=== PATIENT | female | born 1970 | race Caucasian/White ===

== ENCOUNTER → 2021-04-22 | Outpatient (CLI) | payer OTHER | END | disposition home or self-care (01) | LOC: CARD 09:03 | PROVIDERS: ATTEND Nurse Practitioner Primary Care | DX: I51.7 Cardiomegaly (principal); R07.89 Other chest pain; R00.1 Bradycardia, unspecified ==

== ENCOUNTER → 2021-09-26 | Outpatient (CLI) | payer OTHER | END | disposition home or self-care (01) | LOC: US 01:31 | PROVIDERS: ATTEND Physician Assistant | DX: K21.00 Gastro-esophageal reflux disease with esophagitis, without bleeding (principal); R10.84 Generalized abdominal pain ==

== ENCOUNTER → 2021-10-30 | Day surgery (SDC) | payer OTHER ==
[~2021-10-30] VITALS: Ht 165.1 cm; Wt 61.2 kg
[~2021-10-30] MED LIST: B12 ACTIVE1000 MCG PO; BIRTH CONTROL TAB PO; CARAFATE1 G1 PO; PROBIOTIC1 EAC4 PO; PROTONIX40 MG PO; WOMEN'S MULTI200 MCG PO
[2021-10-30 08:04] VITALS: BP 98/44
[2021-10-30 08:52] VITALS: BP 90/46
[2021-10-30 09:07] VITALS: BP 92/57
[2021-10-30 09:22] VITALS: BP 105/54
== END | disposition home or self-care (01) ==
LOC: SDC 10-27 09:30
PROVIDERS: ATTEND Surgery
DX: R14.0 Abdominal distension (gaseous) (principal); K29.70 Gastritis, unspecified, without bleeding; Z88.1 Allergy status to other antibiotic agents; Z79.899 Other long term (current) drug therapy

== ENCOUNTER → 2023-10-13 | Outpatient (CLI) | payer OTHER ==
[~2023-10-13] MED LIST changes: +IOHEXOL 300 MG/ML 100 ML VIAL IV ONE
== END | disposition home or self-care (01) ==
LOC: CT 00:40
PROVIDERS: ATTEND Physician Assistant
DX: R10.9 Unspecified abdominal pain (principal)

== ENCOUNTER → 2023-11-26 | Outpatient (CLI) | payer OTHER ==
[~2023-11-26] MED LIST changes: -IOHEXOL 300 MG/ML 100 ML VIAL IV ONE
== END | disposition home or self-care (01) ==
LOC: LAB 13:17
PROVIDERS: ATTEND Physician Assistant
DX: R14.0 Abdominal distension (gaseous) (principal); R11.2 Nausea with vomiting, unspecified

== ENCOUNTER → 2024-02-03 | Outpatient (CLI) | payer OTHER ==
[2024-02-03 11:43] LABS: FREE T4 1.15 ng/dl (0.89-1.76); LIPASE 68 U/L (12-53); T3 UPTAKE 23.3 % (22.4-36.7)
[2024-02-04 14:09] LABS: t-TRANSGLUTAMINASE (tTG) IGA <2 U/mL (0-3); t-TRANSGLUTAMINASE (tTG) IgG 2 U/mL (0-5)
== END | disposition home or self-care (01) ==
LOC: LAB 10:42
PROVIDERS: ATTEND Nurse Practitioner Family
DX: R53.83 Other fatigue (principal); R10.9 Unspecified abdominal pain; K29.70 Gastritis, unspecified, without bleeding

== ENCOUNTER 2024-05-30 12:53 | Emergency (ER) | payer OTHER ==
[~2024-05-30] VITALS: Wt 63.5 kg
[2024-05-30] MEDS ORDERED: VITAMIN C100 M3 PO (13:08)
[2024-05-30] MEDS ORDERED: SODIUM CHLORIDE 0.9% 1,000 ML IV ONE (13:20)
[2024-05-30] MEDS ORDERED: LORazepam 2 MG/ML VIAL IV ONE (13:30)
[2024-05-30 13:48] LABS: BASO # 0.1 10*3/uL (0.0-0.1); BASO % 1.1 % (0.0-1.0); EOS % 0.4 % (1.0-4.0); HEMATOCRIT 40.8 % (37.0-47.0); MEAN CELL VOLUME 91.9 fl (81.0-99.0); MEAN CORPUSCULAR HGB 30.4 pg (27.0-31.0); MEAN CORPUSCULAR HGB CONC 33.1 g/dl (33.0-37.0); MONO # 0.3 10*3/uL (0.1-1.0); MONO % 3.7 % (3.0-9.0); NEUT # 5.8 10*3/uL (2.3-7.9); NEUT % 76.3 % (47.0-73.0); PLATELET COUNT AUTOMATED 296 10*3/uL (130-400); RED BLOOD COUNT 4.44 10*6/uL (4.10-5.10); RED CELL DISTRI WIDTH 13.2 % (0-14.5); WHITE BLOOD COUNT 7.6 10*3/uL (4.8-10.8)
[2024-05-30 14:11] LABS: BUN 13 mg/dl (9-23); CHLORIDE 101 mmol/L (98-107); POTASSIUM 4.4 mmol/L (3.4-5.1)
[2024-05-30 14:19] LABS: BILIRUBIN Negative (Negative); BLOOD Negative (Negative); CLARITY Clear (Clear); COLOR Yellow (Yellow); GLUCOSE Negative (Negative); KETONE Negative (Negative); LEUKO ESTERASE Negative (Negative); NITRITE Negative (Negative); SPECIFIC GRAVITY <= 1.005 (1.001-1.030); UROBILINOGEN 0.2 E.U./dl (0.0-1.0)
[2024-05-30 14:26] LABS: URINE AMPHETAMINES Negative (1000ng/ml); URINE BARBITURATES Negative (200ng/ml); URINE BENZODIAZEPINES Negative (200ng/ml); URINE CANNABINOIDS (THC) Negative (50ng/ml); URINE COCAINE Negative (300ng/ml); URINE METHADONE Negative (300ng/ml); URINE OPIATES Negative (300ng/ml); URINE PHENCYCLIDINE Negative (25ng/ml)
[2024-05-30 14:40] LABS: RBC 0-2 rbc/hpf (0-2); WBC 0-2 wbc/hpf (0-5)
[2024-05-30] MEDS ORDERED: PREDNISONE20 M1 PO (15:43)
[2024-05-30] MEDS ORDERED: methylPREDNISolone sod succ 125 MG VIAL IV ONE (15:45)
== END 2024-05-30 15:39 | disposition home or self-care (01) ==
LOC: ED 12:53
PROVIDERS: Nurse Practitioner Family
DX: R07.1 Chest pain on breathing (principal); Z20.822 Contact with and (suspected) exposure to COVID-19; R42 Dizziness and giddiness; R45.89 Other symptoms and signs involving emotional state; Z88.0 Allergy status to penicillin; Z88.1 Allergy status to other antibiotic agents; Z79.899 Other long term (current) drug therapy

== ENCOUNTER 2024-06-18 04:19 | Emergency (ER) | payer OTHER ==
[~2024-06-18] VITALS: Ht 165.1 cm; Wt 64.5 kg
[~2024-06-18 04:19] MED LIST changes: +PREDNISONE20 M1 PO; +VITAMIN C100 M3 PO
[2024-06-18] MEDS ORDERED: LORazepam 0.5 MG TAB PO ONE (04:35)
[2024-06-18 04:46] LABS: BASO # 0.1 10*3/uL (0.0-0.1); BASO % 1.4 % (0.0-1.0); EOS % 0.2 % (1.0-4.0); HEMATOCRIT 43.8 % (37.0-47.0); MEAN CELL VOLUME 91.4 fl (81.0-99.0); MEAN CORPUSCULAR HGB 30.1 pg (27.0-31.0); MEAN CORPUSCULAR HGB CONC 32.9 g/dl (33.0-37.0); MEAN PLATELET VOLUME 8.9 fl (9.6-12.3); MONO # 0.3 10*3/uL (0.1-1.0); NEUT # 5.1 10*3/uL (2.3-7.9); NEUT % 76.4 % (47.0-73.0); PLATELET COUNT AUTOMATED 300 10*3/uL (130-400); RED BLOOD COUNT 4.79 10*6/uL (4.10-5.10); RED CELL DISTRI WIDTH 13.2 % (0-14.5); WHITE BLOOD COUNT 6.6 10*3/uL (4.8-10.8)
[2024-06-18 05:17] LABS: BUN 14 mg/dl (9-23); CHLORIDE 104 mmol/L (98-107); POTASSIUM 4.4 mmol/L (3.4-5.1)
[2024-06-18] MEDS ORDERED: Meclizine Hydrochloride 25 MG TAB PO ONE (05:55)
[2024-06-18] MEDS ORDERED: Metoclopramide Hydrochloride 5 MG TAB PO ONE (05:55)
[2024-06-18] MEDS ORDERED: REGLAN10 M1 PO (05:58)
[2024-06-18] MEDS ORDERED: MEDI-MECLIZINE25 MG PO (05:58)
== END 2024-06-18 06:10 | disposition home or self-care (01) ==
LOC: ED 04:19
PROVIDERS: Internal Medicine
DX: R51.9 Headache, unspecified (principal); R42 Dizziness and giddiness; F41.9 Anxiety disorder, unspecified; Z88.0 Allergy status to penicillin; Z88.1 Allergy status to other antibiotic agents